=== PATIENT | female | born 1935 | race Caucasian/White ===

== ENCOUNTER 2017-04-01 10:10 | Inpatient (IN) | payer MEDICARE ==
[~2017-04-01 10:10] MED LIST: AMBIEN5 MG PO; AUGMENTIN 875-1 EAC2 PO; AZITHROMYCIN250 MG PO; COLACE100 M1 PO; COLACE100 MG PO; COUMADIN2 M1 PO; COUMADIN3 MG PO; COUMADIN4 M1 PO; COUMADIN4 MG PO; COUMADIN5 MG; CYANOCOBAL1000 MCG/M IJ; DULCOLAX10 MG/SUPP RC; ESCITALOPRAM OX10 M1 PO; FOLIC ACID1 MG PO; HYDREA500 M1 PO; HYDREA500 MG PO; HYDROXYUREA500 M1 PO; HYDROXYUREA500 MG; IRON325 M3 PO; LEVAQUIN750 M1 PO; LIDODERM700 MG TP; MIRALAX17 G2 PO; NORTRIPTYLINE H75 MG PO; OMEPRAZOLE PO; OMNICEF300 MG PO; OXYBUTYNIN CHLOR5 M2 PO; PRILOSEC OTC20 M1 PO; PRINZIDE 20/12.1 TAB PO; ROXICODONE5 M2 PO; TRAMADOL HCL50 M2 PO; TRAZODONE HCL50 M1 PO; TYLENOL ARTHRI650 M1 PO; TYLENOL325 MG PO; Tramadol Hcl PO; VITAMIN B-12; [UNRECOGNIZED DRUG - OTHER] IJ
[2017-04-01] MEDS ORDERED: COUMADIN5 M2 PO (11:53)
[2017-04-01] MEDS ORDERED: TRAZODONE HCL50 M1 PO (11:55)
[2017-04-01 12:29] LABS: BASO % 0.2 % (0-2); EOS % 0.2 % (0-7); HGB-HEMOGLOBIN 10.5 gm/dl (12.0-15.5); IMMATURE GRANULOCYTES ABSOLUTE 0.13 tho/cmm (0-0.03); LYMPH % 12.9 % (20-45); LYMPH ABSOLUTE COUNT 0.8 tho/cmm (0.8-4.5); MCHC MEAN CORPUSCULAR HGB CONC 33.9 % (32.0-36.0); MCV (MEAN CELL VOLUME) 129.2 fl (82.0-96.0); MEAN PLATELET VOLUME 10.3 cmc (9.4-12.4); MONO % 15.2 % (0-12); NEUTROPHIL ABSOLUTE COUNT 4.5 tho/cmm (1.6-8.0); NEUTROPHIL-AUTOMATED 4.5 tho/cmm (1.6-8.0); NEUTROPHILS % 69.5 % (40-80); PLATELET COUNT 639 tho/cmm (150-450); RED CELL DISTRIBUTION WIDTH 13.7 % (12.4-16.4); WHITE BLOOD COUNT 6.5 tho/cmm (4.0-10.0)
[2017-04-01 12:30] LABS: PROTHROMBIN TIME 36.6 SECONDS (9.0-13.6)
[2017-04-01 12:36] LABS: MCH (MEAN CORPUSCULAR HGB) >40.9 pg (28.0-32.0)
[2017-04-01 12:47] LABS: ANION GAP 14 mmol/L (0-20); BLOOD UREA NITROGEN 20 mg/dl (6-24); CALCIUM 8.6 mg/dl (8.5-10.5); CARBON DIOXIDE-VENOUS 20 mmol/L (22-32); CHLORIDE 108 mmol/l (96-110); GLUCOSE 102 mg/dL (70-110); POTASSIUM 4.5 mmol/L (3.7-5.1); SODIUM 137 mmol/L (135-145); eGFR VALUE FOR BLACK >90 mL/Min
[2017-04-01] MEDS ORDERED: OMEPRAZOLE MAGN20 M1 PO (13:33)
[2017-04-01] MEDS ORDERED: HYDREA500 M1 PO (13:55)
[2017-04-01] MEDS ORDERED: ACETAMINOPHEN1 EAC4 PO (14:09)
[2017-04-01] MEDS ORDERED: CELEXA20 M2 PO (14:13)
[2017-04-02 05:56] LABS: BASO % 0.1 % (0-2); EOS % 0.1 % (0-7); HGB-HEMOGLOBIN 9.1 gm/dl (12.0-15.5); IMMATURE GRANULOCYTES PERCENT 2.1 % (0-0.3); LYMPH % 11.5 % (20-45); LYMPH ABSOLUTE COUNT 1.1 tho/cmm (0.8-4.5); MCHC MEAN CORPUSCULAR HGB CONC 33.7 % (32.0-36.0); MCV (MEAN CELL VOLUME) 130.4 fl (82.0-96.0); MEAN PLATELET VOLUME 10.3 cmc (9.4-12.4); MONO % 17.2 % (0-12); MONOCYTE ABSOLUTE COUNT 1.6 tho/cmm (0.0-1.2); NEUTROPHIL ABSOLUTE COUNT 6.5 tho/cmm (1.6-8.0); NEUTROPHIL-AUTOMATED 6.5 tho/cmm (1.6-8.0); PLATELET COUNT 547 tho/cmm (150-450); RED BLOOD COUNT 2.07 mil/cmm (4.00-5.20); WHITE BLOOD COUNT 9.5 tho/cmm (4.0-10.0)
[2017-04-02 06:06] LABS: INR 4.9 INR (0.9-1.1); PROTHROMBIN TIME 60.2 SECONDS (9.0-13.6)
[2017-04-02 06:08] LABS: ANION GAP 11 mmol/L (0-20); BLOOD UREA NITROGEN 22 mg/dl (6-24); CALCIUM 7.8 mg/dl (8.5-10.5); CARBON DIOXIDE-VENOUS 24 mmol/L (22-32); CHLORIDE 107 mmol/l (96-110); CREATININE 0.67 mg/dl (0.50-1.10); GLUCOSE 112 mg/dL (70-110); POTASSIUM 4.4 mmol/L (3.7-5.1); SODIUM 138 mmol/L (135-145); eGFR VALUE FOR BLACK >90 mL/Min
[2017-04-02 06:12] LABS: C-REACTIVE PROTEIN 13.7 mg/dl (0-0.9)
[2017-04-03 05:48] LABS: EOS % 0.1 % (0-7); HCT-HEMATOCRIT 24.6 % (34.0-49.0); HGB-HEMOGLOBIN 8.3 gm/dl (12.0-15.5); IMMATURE GRANULOCYTES ABSOLUTE 0.09 tho/cmm (0-0.03); LYMPH % 7.5 % (20-45); LYMPH ABSOLUTE COUNT 0.7 tho/cmm (0.8-4.5); MCHC MEAN CORPUSCULAR HGB CONC 33.7 % (32.0-36.0); MCV (MEAN CELL VOLUME) 128.8 fl (82.0-96.0); MEAN PLATELET VOLUME 10.4 cmc (9.4-12.4); MONOCYTE ABSOLUTE COUNT 1.1 tho/cmm (0.0-1.2); NEUTROPHIL ABSOLUTE COUNT 7.1 tho/cmm (1.6-8.0); NEUTROPHIL-AUTOMATED 7.1 tho/cmm (1.6-8.0); NEUTROPHILS % 79.4 % (40-80); PLATELET COUNT 518 tho/cmm (150-450); RED BLOOD COUNT 1.91 mil/cmm (4.00-5.20); RED CELL DISTRIBUTION WIDTH 14.2 % (12.4-16.4); WHITE BLOOD COUNT 8.9 tho/cmm (4.0-10.0)
[2017-04-03 05:50] LABS: MCH (MEAN CORPUSCULAR HGB) >40.9 pg (28.0-32.0)
[2017-04-03 05:57] LABS: ANION GAP 8 mmol/L (0-20); BLOOD UREA NITROGEN 20 mg/dl (6-24); C-REACTIVE PROTEIN 14.7 mg/dl (0-0.9); CALCIUM 7.9 mg/dl (8.5-10.5); CARBON DIOXIDE-VENOUS 24 mmol/L (22-32); CHLORIDE 110 mmol/l (96-110); GLUCOSE 109 mg/dL (70-110); POTASSIUM 4.1 mmol/L (3.7-5.1); SODIUM 138 mmol/L (135-145); eGFR VALUE FOR BLACK >90 mL/Min
[2017-04-03 06:01] LABS: INR 2.8 INR (0.9-1.1); PROTHROMBIN TIME 33.2 SECONDS (9.0-13.6)
[2017-04-03] MEDS ORDERED: ULTRAM50 M1 PO (11:00)
[2017-04-03] MEDS ORDERED: AUGMENTIN 875-1 EAC2 PO (11:02)
[2017-04-03] MEDS ORDERED: PROBIOTIC1 EAC7 PO (11:02)
[2017-05-25] MEDS ORDERED: COUMADIN2 M1 PO (11:41)
[2017-05-27] MEDS ORDERED: LIDODERM1 EACH TP (16:49)
[2017-07-11] MEDS ORDERED: POTASSIUM CHLO10 ME2 PO (10:14)
[2017-07-11] MEDS ORDERED: HYDROXYUREA PO ×2 (10:15→10:16)
[2017-07-11] MEDS ORDERED: COUMADIN2 M1 PO (10:16)
[2017-07-11] MEDS ORDERED: COUMADIN2.5 M1 PO (10:17)
[2017-07-11] MEDS ORDERED: DOCUSATE SODIU100 M2 PO (10:18)
[2017-07-11] MEDS ORDERED: LOVENOX60 MG/0.1 SC (10:18)
[2017-07-11] MEDS ORDERED: DEPAKOTE SPRIN125 M1 PO (10:19)
[2017-07-11] MEDS ORDERED: BACLOFEN10 M1 PO (10:19)
[2017-07-11] MEDS ORDERED: ACETAMINOPHEN500 M4 PO (10:19)
[2017-07-11] MEDS ORDERED: LIDOCAINE1 EACH TD (10:20)
[2017-07-11] MEDS ORDERED: TRAZODONE HCL50 M1 PO (10:20)
[2017-07-11] MEDS ORDERED: LAMICTAL25 M2 PO (10:20)
[2017-07-11] MEDS ORDERED: OMEPRAZOLE PO (10:21)
[2017-07-11] MEDS ORDERED: CELEXA20 M2 PO (10:21)
[2017-07-11] MEDS ORDERED: CHLORASEPTIC SO2 LOZ MM (10:22)
[2017-07-11] MEDS ORDERED: LASIX20 M1 PO (10:22)
[2017-07-11] MEDS ORDERED: OXYBUTYNIN CHLOR5 M2 PO (10:22)
[2017-07-11] MEDS ORDERED: MILK OF MAGNESIA PO (10:23)
[2017-07-11] MEDS ORDERED: TYLENOL325 M2 PO (10:23)
[2017-07-11] MEDS ORDERED: BISCOLAX10 MG PR (10:23)
[2017-07-11] MEDS ORDERED: ENEMEEZ283 MG/5 M PR (10:24)
== END 2017-04-03 13:55 | DRG 603 ==
LOC: EDMED 10:10 → EMR2 13:35 → CAR1 15:25
PROVIDERS: Emergency Medicine; Nurse Practitioner; Physician Assistant; ADMIT Hospitalist
PROC: 05H533Z Insertion of Infusion Device into Right Subclavian Vein, Percutaneous Approach (ICD-10-PCS; principal; 2017-04-02)
DX: L03.113 Cellulitis of right upper limb (principal); C90.00 Multiple myeloma not having achieved remission; F03.90 Unspecified dementia, unspecified severity, without behavioral disturbance, psychotic disturbance, mood disturbance, and anxiety; S61.451A Open bite of right hand, initial encounter; D47.3 Essential (hemorrhagic) thrombocythemia; N32.81 Overactive bladder; W55.01XA Bitten by cat, initial encounter; I69.320 Aphasia following cerebral infarction; Z79.01 Long term (current) use of anticoagulants; Z87.11 Personal history of peptic ulcer disease; Z87.898 Personal history of other specified conditions; Z96.651 Presence of right artificial knee joint
CPT/HCPCS: C1751; J0295; J2270; J7030

== ENCOUNTER 2017-05-29 09:37 | Inpatient (IN) | payer MEDICARE ==
[~2017-05-29] VITALS: Ht 152.4 cm; Wt 50.3 kg
[~2017-05-29 09:37] MED LIST changes: +ACETAMINOPHEN1 EAC4 PO; +CELEXA20 M2 PO; +COUMADIN5 M2 PO; +LIDODERM1 EACH TP; +OMEPRAZOLE MAGN20 M1 PO; +PROBIOTIC1 EAC7 PO; +ULTRAM50 M1 PO
[2017-05-29 09:53] LABS: BASO % 0.4 % (0-2); EOS % 0.6 % (0-7); HCT-HEMATOCRIT 29.4 % (34.0-49.0); HGB-HEMOGLOBIN 9.9 gm/dl (12.0-15.5); IMMATURE GRANULOCYTES ABSOLUTE 0.02 tho/cmm (0-0.03); IMMATURE GRANULOCYTES PERCENT 0.4 % (0-0.3); LYMPH % 30.7 % (20-45); LYMPH ABSOLUTE COUNT 1.6 tho/cmm (0.8-4.5); MCHC MEAN CORPUSCULAR HGB CONC 33.7 % (32.0-36.0); MCV (MEAN CELL VOLUME) 124.1 fl (82.0-96.0); MEAN PLATELET VOLUME 10.3 cmc (9.4-12.4); MONO % 19.2 % (0-12); NEUTROPHIL ABSOLUTE COUNT 2.5 tho/cmm (1.6-8.0); NEUTROPHIL-AUTOMATED 2.5 tho/cmm (1.6-8.0); NEUTROPHILS % 48.7 % (40-80); PLATELET COUNT 585 tho/cmm (150-450); RED BLOOD COUNT 2.37 mil/cmm (4.00-5.20); RED CELL DISTRIBUTION WIDTH 13.8 % (12.4-16.4); WHITE BLOOD COUNT 5.1 tho/cmm (4.0-10.0)
[2017-05-29 10:07] LABS: ALB/GLOB RATIO 0.6 (0.8-2.0); ALBUMIN 3.2 g/dl (3.5-5.0); ALKALINE PHOSPHATASE 118 U/L (33-138); ALT/SGPT 20 U/L (12-78); ANION GAP 14 mmol/L (0-20); AST/SGOT 24 U/L (10-40); BILIRUBIN,TOTAL 0.3 mg/dl (0-1.5); BLOOD UREA NITROGEN 11 mg/dl (6-24); CALCIUM 8.5 mg/dl (8.5-10.5); CARBON DIOXIDE-VENOUS 24 mmol/L (22-32); CHLORIDE 105 mmol/l (96-110); GLUCOSE 101 mg/dL (70-110); POTASSIUM 3.8 mmol/L (3.7-5.1); SODIUM 139 mmol/L (135-145); eGFR VALUE FOR BLACK >90 mL/Min
[2017-05-29 10:08] LABS: MCH (MEAN CORPUSCULAR HGB) 40.9 pg (28.0-32.0)
[2017-05-29 10:13] LABS: INR 1.1 INR (0.9-1.1); PROTHROMBIN TIME 12.9 SECONDS (9.0-13.6)
[2017-05-29 10:26] LABS: ESR-ERYTHROCYTE SED RATE 66 mm/hr (0-30)
[2017-05-29 21:31] LABS: URINE BILIRUBIN NEGATIVE (NEG); URINE BLOOD SMALL (NEG); URINE GLUCOSE (UA) NEGATIVE (NEG); URINE KETONE NEGATIVE (NEG); URINE LEUKOCYTE ESTERASE POSITIVE (NEG); URINE NITRITE POSITIVE (NEG); URINE PROTEIN NEGATIVE (NEG)
[2017-05-29 21:33] LABS: URINE APPEARANCE HAZY; URINE COLOR YELLOW
[2017-05-29 22:07] LABS: URINE BACTERIA 4+
[2017-05-30 02:57] LABS: ANION GAP 14 mmol/L (0-20); BLOOD UREA NITROGEN 6 mg/dl (6-24); CALCIUM 7.9 mg/dl (8.5-10.5); CARBON DIOXIDE-VENOUS 23 mmol/L (22-32); CHLORIDE 102 mmol/l (96-110); CREATININE 0.43 mg/dl (0.50-1.10); GLUCOSE 103 mg/dL (70-110); MAGNESIUM 1.7 mg/dl (1.8-2.6); POTASSIUM 3.1 mmol/L (3.7-5.1); SODIUM 136 mmol/L (135-145); eGFR VALUE FOR BLACK >90 mL/Min
[2017-05-31 09:54] LABS: URINE APPEARANCE CLOUDY; URINE BILIRUBIN NEGATIVE (NEG); URINE BLOOD LARGE (NEG); URINE COLOR YELLOW; URINE GLUCOSE (UA) NEGATIVE (NEG); URINE KETONE MODERATE (NEG); URINE LEUKOCYTE ESTERASE POSITIVE (NEG); URINE NITRITE POSITIVE (NEG); URINE PROTEIN MODERATE (NEG); URINE SPECIFIC GRAVITY 1.015 (1.003-1.030)
[2017-05-31 10:16] LABS: URINE BACTERIA 4+; URINE RBC 30-50 /[HPF] (0-5); URINE WBC FULL FIELD /[HPF] (0-5)
[2017-05-31 14:37] LABS: BASO % 0.3 % (0-2); EOS % 0.1 % (0-7); HCT-HEMATOCRIT 30.6 % (34.0-49.0); HGB-HEMOGLOBIN 10.5 gm/dl (12.0-15.5); IMMATURE GRANULOCYTES ABSOLUTE 0.04 tho/cmm (0-0.03); IMMATURE GRANULOCYTES PERCENT 0.5 % (0-0.3); LYMPH % 17.6 % (20-45); LYMPH ABSOLUTE COUNT 1.3 tho/cmm (0.8-4.5); MCHC MEAN CORPUSCULAR HGB CONC 34.3 % (32.0-36.0); MCV (MEAN CELL VOLUME) 123.9 fl (82.0-96.0); MEAN PLATELET VOLUME 10.7 cmc (9.4-12.4); MONO % 15.4 % (0-12); MONOCYTE ABSOLUTE COUNT 1.2 tho/cmm (0.0-1.2); NEUTROPHILS % 66.1 % (40-80); PLATELET COUNT 467 tho/cmm (150-450); RED BLOOD COUNT 2.47 mil/cmm (4.00-5.20); RED CELL DISTRIBUTION WIDTH 13.5 % (12.4-16.4); WHITE BLOOD COUNT 7.6 tho/cmm (4.0-10.0)
[2017-05-31 14:42] LABS: INR 1.2 INR (0.9-1.1); PROTHROMBIN TIME 14.7 SECONDS (9.0-13.6)
[2017-05-31 14:56] LABS: MCH (MEAN CORPUSCULAR HGB) >40.9 pg (28.0-32.0)
[2017-06-01 05:45] LABS: BASO % 0.4 % (0-2); EOS % 0.3 % (0-7); HCT-HEMATOCRIT 27.9 % (34.0-49.0); HGB-HEMOGLOBIN 9.6 gm/dl (12.0-15.5); IMMATURE GRANULOCYTES ABSOLUTE 0.03 tho/cmm (0-0.03); IMMATURE GRANULOCYTES PERCENT 0.4 % (0-0.3); LYMPH % 14.5 % (20-45); MCHC MEAN CORPUSCULAR HGB CONC 34.4 % (32.0-36.0); MCV (MEAN CELL VOLUME) 122.4 fl (82.0-96.0); MEAN PLATELET VOLUME 10.8 cmc (9.4-12.4); MONO % 18.4 % (0-12); MONOCYTE ABSOLUTE COUNT 1.3 tho/cmm (0.0-1.2); NEUTROPHIL ABSOLUTE COUNT 4.6 tho/cmm (1.6-8.0); NEUTROPHIL-AUTOMATED 4.6 tho/cmm (1.6-8.0); PLATELET COUNT 418 tho/cmm (150-450); RED BLOOD COUNT 2.28 mil/cmm (4.00-5.20); RED CELL DISTRIBUTION WIDTH 13.3 % (12.4-16.4)
[2017-06-01 05:47] LABS: ALB/GLOB RATIO 0.6 (0.8-2.0); ALBUMIN 2.7 g/dl (3.5-5.0); ALKALINE PHOSPHATASE 145 U/L (33-138); ALT/SGPT 16 U/L (12-78); ANION GAP 15 mmol/L (0-20); AST/SGOT 17 U/L (10-40); BILIRUBIN,TOTAL 0.4 mg/dl (0-1.5); BLOOD UREA NITROGEN 6 mg/dl (6-24); CALCIUM 8.1 mg/dl (8.5-10.5); CARBON DIOXIDE-VENOUS 22 mmol/L (22-32); CHLORIDE 101 mmol/l (96-110); CREATININE 0.37 mg/dl (0.50-1.10); GLUCOSE 119 mg/dL (70-110); SODIUM 135 mmol/L (135-145); eGFR VALUE FOR BLACK >90 mL/Min
[2017-06-01 05:51] LABS: MCH (MEAN CORPUSCULAR HGB) 40.9 pg (28.0-32.0)
[2017-06-02 03:49] LABS: ANION GAP 14 mmol/L (0-20); BLOOD UREA NITROGEN 5 mg/dl (6-24); CALCIUM 8.4 mg/dl (8.5-10.5); CARBON DIOXIDE-VENOUS 21 mmol/L (22-32); CHLORIDE 104 mmol/l (96-110); CREATININE 0.35 mg/dl (0.50-1.10); GLUCOSE 112 mg/dL (70-110); SODIUM 135 mmol/L (135-145); eGFR VALUE FOR BLACK >90 mL/Min
[2017-06-02 03:54] LABS: POTASSIUM 3.9 mmol/L (3.7-5.1)
[2017-06-02 04:58] LABS: ABG CO2 ARTERIAL 22 mmol/L (21-27); ARTERIAL BLD GAS O2 SATURATION 96 % (95-98); ARTERIAL BLOOD GAS PCO2 30 mmHg (32-45); ARTERIAL PO2 78 mmHg (70-100); BICARBONATE 22 mmol/L (21-28); BLOOD GAS BASE EXCESS -1 mM/L (-/+3); PH 7.47 Units (7.35-7.45)
[2017-06-02 14:45] LABS: URINE BILIRUBIN NEGATIVE (NEG); URINE BLOOD MODERATE (NEG); URINE GLUCOSE (UA) NEGATIVE (NEG); URINE KETONE MODERATE (NEG); URINE LEUKOCYTE ESTERASE POSITIVE (NEG); URINE NITRITE NEGATIVE (NEG); URINE PROTEIN NEGATIVE (NEG)
[2017-06-02 14:49] LABS: URINE APPEARANCE HAZY; URINE COLOR YELLOW
[2017-06-02 15:01] LABS: URINE EPITHELIAL CELLS 20-25 /[HPF] (0-10)
[2017-06-02 15:02] LABS: URINE BACTERIA 1+; URINE MUCUS 1+
[2017-06-03 05:14] LABS: URINE BILIRUBIN NEGATIVE (NEG); URINE BLOOD NEGATIVE (NEG); URINE GLUCOSE (UA) NEGATIVE (NEG); URINE KETONE NEGATIVE (NEG); URINE LEUKOCYTE ESTERASE NEGATIVE (NEG); URINE NITRITE NEGATIVE (NEG); URINE PROTEIN NEGATIVE (NEG); URINE SPECIFIC GRAVITY 1.005 (1.003-1.030)
[2017-06-03 05:19] LABS: URINE APPEARANCE CLEAR; URINE COLOR PALE YELLOW
[2017-06-03 05:22] LABS: BASO % 0.5 % (0-2); EOS % 0.5 % (0-7); HCT-HEMATOCRIT 27.1 % (34.0-49.0); HGB-HEMOGLOBIN 9.3 gm/dl (12.0-15.5); IMMATURE GRANULOCYTES ABSOLUTE 0.06 tho/cmm (0-0.03); IMMATURE GRANULOCYTES PERCENT 0.9 % (0-0.3); LYMPH ABSOLUTE COUNT 1.1 tho/cmm (0.8-4.5); MCHC MEAN CORPUSCULAR HGB CONC 34.3 % (32.0-36.0); MCV (MEAN CELL VOLUME) 121.5 fl (82.0-96.0); MEAN PLATELET VOLUME 10.7 cmc (9.4-12.4); MONO % 17.5 % (0-12); MONOCYTE ABSOLUTE COUNT 1.2 tho/cmm (0.0-1.2); NEUTROPHIL ABSOLUTE COUNT 4.2 tho/cmm (1.6-8.0); NEUTROPHIL-AUTOMATED 4.2 tho/cmm (1.6-8.0); NEUTROPHILS % 63.6 % (40-80); PLATELET COUNT 511 tho/cmm (150-450); RED BLOOD COUNT 2.23 mil/cmm (4.00-5.20); RED CELL DISTRIBUTION WIDTH 13.4 % (12.4-16.4); WHITE BLOOD COUNT 6.6 tho/cmm (4.0-10.0)
[2017-06-03 05:23] LABS: MCH (MEAN CORPUSCULAR HGB) 40.9 pg (28.0-32.0)
[2017-06-03 06:00] LABS: URINE EPITHELIAL CELLS RARE /[HPF] (0-10); URINE RBC 0 /[HPF] (0-5); URINE WBC 0 /[HPF] (0-5)
[2017-06-04 06:09] LABS: INR 1.2 INR (0.9-1.1); PROTHROMBIN TIME 14.5 SECONDS (9.0-13.6)
[2017-06-05 07:07] LABS: INR 3.7 INR (0.9-1.1)
[2017-06-06 07:56] LABS: INR 1.3 INR (0.9-1.1); PROTHROMBIN TIME 15.7 SECONDS (9.0-13.6)
[2017-06-07 06:17] LABS: INR 1.2 INR (0.9-1.1)
[2017-06-08 06:28] LABS: INR 1.2 INR (0.9-1.1); PROTHROMBIN TIME 13.6 SECONDS (9.0-13.6)
[2017-06-09 06:17] LABS: BASO % 0.2 % (0-2); EOS % 0.2 % (0-7); HCT-HEMATOCRIT 24.7 % (34.0-49.0); HGB-HEMOGLOBIN 8.5 gm/dl (12.0-15.5); IMMATURE GRANULOCYTES ABSOLUTE 0.05 tho/cmm (0-0.03); IMMATURE GRANULOCYTES PERCENT 0.6 % (0-0.3); LYMPH % 9.9 % (20-45); LYMPH ABSOLUTE COUNT 0.9 tho/cmm (0.8-4.5); MCHC MEAN CORPUSCULAR HGB CONC 34.4 % (32.0-36.0); MCV (MEAN CELL VOLUME) 117.6 fl (82.0-96.0); MEAN PLATELET VOLUME 10.8 cmc (9.4-12.4); MONO % 20.3 % (0-12); MONOCYTE ABSOLUTE COUNT 1.8 tho/cmm (0.0-1.2); NEUTROPHIL ABSOLUTE COUNT 6.1 tho/cmm (1.6-8.0); NEUTROPHIL-AUTOMATED 6.1 tho/cmm (1.6-8.0); NEUTROPHILS % 68.8 % (40-80); PLATELET COUNT 537 tho/cmm (150-450); RED CELL DISTRIBUTION WIDTH 13.9 % (12.4-16.4); WHITE BLOOD COUNT 8.9 tho/cmm (4.0-10.0)
[2017-06-09 06:22] LABS: INR 1.2 INR (0.9-1.1); PROTHROMBIN TIME 13.8 SECONDS (9.0-13.6)
[2017-06-09 06:29] LABS: ANION GAP 10 mmol/L (0-20); BLOOD UREA NITROGEN 8 mg/dl (6-24); CALCIUM 8.2 mg/dl (8.5-10.5); CARBON DIOXIDE-VENOUS 27 mmol/L (22-32); CHLORIDE 94 mmol/l (96-110); CREATININE 0.32 mg/dl (0.50-1.10); GLUCOSE 120 mg/dL (70-110); POTASSIUM 3.8 mmol/L (3.7-5.1); SODIUM 127 mmol/L (135-145); eGFR VALUE FOR BLACK >90 mL/Min
[2017-06-09 06:45] LABS: MCH (MEAN CORPUSCULAR HGB) 40.5 pg (28.0-32.0)
[2017-06-09 12:40] LABS: TSH-THYROID STIMULATING HORM. 3.24 uIU/ml (0.40-3.80)
[2017-06-10 05:51] LABS: BASO % 0.1 % (0-2); EOS % 0.4 % (0-7); HCT-HEMATOCRIT 25.2 % (34.0-49.0); HGB-HEMOGLOBIN 8.6 gm/dl (12.0-15.5); IMMATURE GRANULOCYTES ABSOLUTE 0.05 tho/cmm (0-0.03); IMMATURE GRANULOCYTES PERCENT 0.7 % (0-0.3); LYMPH % 13.1 % (20-45); MCHC MEAN CORPUSCULAR HGB CONC 34.1 % (32.0-36.0); MCV (MEAN CELL VOLUME) 117.2 fl (82.0-96.0); MEAN PLATELET VOLUME 10.9 cmc (9.4-12.4); MONO % 20.7 % (0-12); MONOCYTE ABSOLUTE COUNT 1.5 tho/cmm (0.0-1.2); NEUTROPHIL ABSOLUTE COUNT 4.7 tho/cmm (1.6-8.0); NEUTROPHIL-AUTOMATED 4.7 tho/cmm (1.6-8.0); PLATELET COUNT 610 tho/cmm (150-450); RED BLOOD COUNT 2.15 mil/cmm (4.00-5.20); RED CELL DISTRIBUTION WIDTH 13.9 % (12.4-16.4); WHITE BLOOD COUNT 7.2 tho/cmm (4.0-10.0)
[2017-06-10 06:01] LABS: INR 1.1 INR (0.9-1.1); PROTHROMBIN TIME 12.9 SECONDS (9.0-13.6)
[2017-06-10 06:13] LABS: ANION GAP 10 mmol/L (0-20); BLOOD UREA NITROGEN 6 mg/dl (6-24); CARBON DIOXIDE-VENOUS 26 mmol/L (22-32); CHLORIDE 94 mmol/l (96-110); CREATININE 0.28 mg/dl (0.50-1.10); GLUCOSE 92 mg/dL (70-110); MAGNESIUM 2.2 mg/dl (1.8-2.6); PHOSPHOROUS 3.1 mg/dl (2.5-4.9); POTASSIUM 3.5 mmol/L (3.7-5.1); SODIUM 126 mmol/L (135-145); eGFR VALUE FOR BLACK >90 mL/Min
[2017-06-10 17:21] LABS: ANION GAP 9 mmol/L (0-20); BLOOD UREA NITROGEN 6 mg/dl (6-24); CALCIUM 8.7 mg/dl (8.5-10.5); CARBON DIOXIDE-VENOUS 27 mmol/L (22-32); CHLORIDE 94 mmol/l (96-110); GLUCOSE 104 mg/dL (70-110); POTASSIUM 3.9 mmol/L (3.7-5.1); SODIUM 126 mmol/L (135-145); eGFR VALUE FOR BLACK >90 mL/Min
[2017-06-10 17:23] LABS: CREATININE 0.44 mg/dl (0.50-1.10)
[2017-06-11 05:25] LABS: INR 1.2 INR (0.9-1.1); PROTHROMBIN TIME 13.6 SECONDS (9.0-13.6)
[2017-06-11 05:34] LABS: ALBUMIN 2.8 g/dl (3.5-5.0); ANION GAP 13 mmol/L (0-20); BLOOD UREA NITROGEN 8 mg/dl (6-24); CALCIUM 8.6 mg/dl (8.5-10.5); CARBON DIOXIDE-VENOUS 25 mmol/L (22-32); CHLORIDE 91 mmol/l (96-110); CREATININE 0.39 mg/dl (0.50-1.10); GLUCOSE 110 mg/dL (70-110); PHOSPHOROUS 3.1 mg/dl (2.5-4.9); POTASSIUM 3.9 mmol/L (3.7-5.1); SODIUM 125 mmol/L (135-145); eGFR VALUE FOR BLACK >90 mL/Min
[2017-06-11 05:37] LABS: OSMOLALITY 258 mOsm/kg (275-295)
[2017-06-12 05:08] LABS: INR 1.2 INR (0.9-1.1); PROTHROMBIN TIME 13.8 SECONDS (9.0-13.6)
[2017-06-12 05:16] LABS: ANION GAP 11 mmol/L (0-20); BLOOD UREA NITROGEN 10 mg/dl (6-24); CALCIUM 8.3 mg/dl (8.5-10.5); CARBON DIOXIDE-VENOUS 27 mmol/L (22-32); CHLORIDE 92 mmol/l (96-110); CREATININE 0.39 mg/dl (0.50-1.10); GLUCOSE 127 mg/dL (70-110); POTASSIUM 3.8 mmol/L (3.7-5.1); SODIUM 126 mmol/L (135-145); eGFR VALUE FOR BLACK >90 mL/Min
[2017-06-12 18:34] LABS: ANION GAP 10 mmol/L (0-20); BLOOD UREA NITROGEN 13 mg/dl (6-24); CALCIUM 8.7 mg/dl (8.5-10.5); CARBON DIOXIDE-VENOUS 28 mmol/L (22-32); CHLORIDE 95 mmol/l (96-110); GLUCOSE 140 mg/dL (70-110); POTASSIUM 3.9 mmol/L (3.7-5.1); SODIUM 129 mmol/L (135-145); eGFR VALUE FOR BLACK >90 mL/Min
[2017-06-13 06:54] LABS: INR 1.1 INR (0.9-1.1); PROTHROMBIN TIME 13.1 SECONDS (9.0-13.6)
[2017-06-13 07:03] LABS: ALBUMIN 2.8 g/dl (3.5-5.0); ANION GAP 11 mmol/L (0-20); BLOOD UREA NITROGEN 15 mg/dl (6-24); CALCIUM 8.8 mg/dl (8.5-10.5); CARBON DIOXIDE-VENOUS 27 mmol/L (22-32); CHLORIDE 94 mmol/l (96-110); CREATININE 0.45 mg/dl (0.50-1.10); GLUCOSE 131 mg/dL (70-110); PHOSPHOROUS 4.1 mg/dl (2.5-4.9); SODIUM 128 mmol/L (135-145); eGFR VALUE FOR BLACK >90 mL/Min
[2017-06-13 07:13] LABS: OSMOLALITY 273 mOsm/kg (275-295)
--- NOTE | 2017-06-14 02:04 | NUR ---
FAMILY/POA REQUESTED THAT ALL 4 SIDE RAILS BE UP.
[2017-06-14 05:24] LABS: ANION GAP 12 mmol/L (0-20); BLOOD UREA NITROGEN 13 mg/dl (6-24); CALCIUM 9.1 mg/dl (8.5-10.5); CARBON DIOXIDE-VENOUS 28 mmol/L (22-32); CHLORIDE 97 mmol/l (96-110); CREATININE 0.46 mg/dl (0.50-1.10); GLUCOSE 127 mg/dL (70-110); POTASSIUM 4.3 mmol/L (3.7-5.1); SODIUM 133 mmol/L (135-145); eGFR VALUE FOR BLACK >90 mL/Min
[2017-06-14 05:30] LABS: BASO % 0.3 % (0-2); EOS % 0.3 % (0-7); HGB-HEMOGLOBIN 9.3 gm/dl (12.0-15.5); IMMATURE GRANULOCYTES ABSOLUTE 0.03 tho/cmm (0-0.03); IMMATURE GRANULOCYTES PERCENT 0.3 % (0-0.3); LYMPH % 15.4 % (20-45); LYMPH ABSOLUTE COUNT 1.5 tho/cmm (0.8-4.5); MCH (MEAN CORPUSCULAR HGB) 38.8 pg (28.0-32.0); MCHC MEAN CORPUSCULAR HGB CONC 33.2 % (32.0-36.0); MCV (MEAN CELL VOLUME) 116.7 fl (82.0-96.0); MEAN PLATELET VOLUME 10.7 cmc (9.4-12.4); MONO % 20.4 % (0-12); NEUTROPHIL ABSOLUTE COUNT 6.1 tho/cmm (1.6-8.0); NEUTROPHIL-AUTOMATED 6.1 tho/cmm (1.6-8.0); NEUTROPHILS % 63.3 % (40-80); PLATELET COUNT 800 tho/cmm (150-450); RED CELL DISTRIBUTION WIDTH 15.3 % (12.4-16.4); WHITE BLOOD COUNT 9.6 tho/cmm (4.0-10.0)
[2017-06-14 06:04] LABS: INR 1.3 INR (0.9-1.1); PROTHROMBIN TIME 14.9 SECONDS (9.0-13.6)
[2017-07-11] MEDS ORDERED: POTASSIUM CHLO10 ME2 PO (10:14)
[2017-07-11] MEDS ORDERED: HYDROXYUREA PO ×2 (10:15→10:16)
[2017-07-11] MEDS ORDERED: COUMADIN2 M1 PO (10:16)
[2017-07-11] MEDS ORDERED: COUMADIN2.5 M1 PO (10:17)
[2017-07-11] MEDS ORDERED: LOVENOX60 MG/0.1 SC (10:18)
[2017-07-11] MEDS ORDERED: DOCUSATE SODIU100 M2 PO (10:18)
[2017-07-11] MEDS ORDERED: BACLOFEN10 M1 PO (10:19)
[2017-07-11] MEDS ORDERED: DEPAKOTE SPRIN125 M1 PO (10:19)
[2017-07-11] MEDS ORDERED: ACETAMINOPHEN500 M4 PO (10:19)
[2017-07-11] MEDS ORDERED: LAMICTAL25 M2 PO (10:20)
[2017-07-11] MEDS ORDERED: TRAZODONE HCL50 M1 PO (10:20)
[2017-07-11] MEDS ORDERED: LIDOCAINE1 EACH TD (10:20)
[2017-07-11] MEDS ORDERED: CELEXA20 M2 PO (10:21)
[2017-07-11] MEDS ORDERED: OMEPRAZOLE PO (10:21)
[2017-07-11] MEDS ORDERED: LASIX20 M1 PO (10:22)
[2017-07-11] MEDS ORDERED: CHLORASEPTIC SO2 LOZ MM (10:22)
[2017-07-11] MEDS ORDERED: OXYBUTYNIN CHLOR5 M2 PO (10:22)
[2017-07-11] MEDS ORDERED: TYLENOL325 M2 PO (10:23)
[2017-07-11] MEDS ORDERED: MILK OF MAGNESIA PO (10:23)
[2017-07-11] MEDS ORDERED: BISCOLAX10 MG PR (10:23)
[2017-07-11] MEDS ORDERED: ENEMEEZ283 MG/5 M PR (10:24)
== END 2017-06-15 14:27 | DRG 64 ==
LOC: EDMED → EDBD 09:37 → CCU 13:41 → EMR2 13:41 → 5EC 13:41 → 5EB 13:41 → CCU 13:42 → 5EC 06-04 13:09 → 5EB 06-06 22:12
PROVIDERS: Emergency Medicine; Family Medicine; Internal Medicine Cardiovascular Disease; Internal Medicine Interventional Cardiology; Internal Medicine Nephrology; Internal Medicine Pulmonary Disease; Nurse Practitioner; Psychiatry & Neurology Neurology; Registered Nurse; ADMIT Internal Medicine
PROC: 02HV33Z Insertion of Infusion Device into Superior Vena Cava, Percutaneous Approach (ICD-10-PCS; 2017-05-29)
PROC: 0DH63UZ Insertion of Feeding Device into Stomach, Percutaneous Approach (ICD-10-PCS; principal; 2017-06-10)
DX: I63.9 Cerebral infarction, unspecified (principal); G93.40 Encephalopathy, unspecified; E46 Unspecified protein-calorie malnutrition; C90.00 Multiple myeloma not having achieved remission; I48.0 Paroxysmal atrial fibrillation; I35.0 Nonrheumatic aortic (valve) stenosis; E87.1 Hypo-osmolality and hyponatremia; S06.6X9A Traumatic subarachnoid hemorrhage with loss of consciousness of unspecified duration, initial encounter; Z79.01 Long term (current) use of anticoagulants; W19.XXXA Unspecified fall, initial encounter
CPT/HCPCS: C1751; C8929; C9113; G8996-GN-CK; G8996-GN-CN; G8997-GN-CJ; G8997-GN-CM; G9162-GN-CN; G9163-GN-CN; G9164-GN-CN; J0690; J0744; J1450; J1644; J1650; J1940; J2060; J2270; J2997; J3475; J3480; J7030; J7999; L4396